=== PATIENT | male | born 1990 | race Caucasian/White ===

== ENCOUNTER 2023-03-23 11:03 | Inpatient (IN) | payer MEDICAID, OTHER ==
[~2023-03-23] VITALS: Ht 175.3 cm; Wt 90.9 kg
[2023-03-23 13:44] LABS: COVID AG,FIA SOURCE NASAL SWAB
[2023-03-23 13:45] LABS: BASOPHILS % (AUTO) 0.7 % (0.0-2.0); EOSINOPHILS % (AUTO) 1.8 % (1.0-6.0); HEMATOCRIT 41.1 % (41-53); HEMOGLOBIN 13.7 g/dL (13.5-17.5); LYMPHOCYTES # (AUTO) 1.8 K/uL (1.0-4.8); MEAN CORPUSCULAR HEMOGLOBIN 31.2 pg (26.0-34.0); MEAN CORPUSCULAR HGB CONC 33.3 G/dL (31.0-37.0); MEAN CORPUSCULAR VOLUME 94 fL (80-100); MONOCYTES % (AUTO) 10.4 % (2.0-9.0); NEUTROPHILS # (AUTO) 6.2 K/uL (1.8-7.7); NEUTROPHILS % (AUTO) 67.1 % (40.0-70.0); PLATELET COUNT (AUTO) 364 K/uL (150-450); RED BLOOD CELL COUNT(AUTO) 4.39 MIL/uL (4.50-5.90); RED CELL DISTRIBUTION WIDTH 13.8 % (11.5-14.5); WHITE BLOOD COUNT (AUTO) 9.2 K/uL (4.5-11.0)
[2023-03-23 13:50] LABS: SARS-COV2 (COVID) ANTIGEN,FIA Negative (Negative)
[2023-03-23 13:57] LABS: ANION GAP 17 mmol/L (8-16); CALCIUM, TOTAL 9.1 mg/dL (8.8-10.5); CARBON DIOXIDE 21 mmol/L (22-29); CHLORIDE 98 mmol/L (98-107); CREATININE 0.83 mg/dL (0.60-1.30); GLOMERULAR FILTR. RATE CALC > 60 mL/min (>60); GLUCOSE,RANDOM 87 mg/dL (70-110); POTASSIUM 3.4 mmol/L (3.5-5.1); SODIUM SERUM 136 mmol/L (136-145); UREA NITROGEN, BLOOD 18 mg/dL (7-18)
[2023-03-23 14:03] LABS: ALANINE AMINOTRANSFERASE 32 U/L (12-78); ALBUMIN 3.9 g/dL (3.4-5.0); ALKALINE PHOSPHATASE 69 U/L (46-116); ASPARTATE AMINOTRANSFERASE 32 U/L (15-37); BILIRUBIN,TOTAL 0.7 mg/dL (0.1-1.0); TOTAL PROTEIN, SERUM 8.1 g/dL (6.4-8.2)
[2023-03-23 14:09] LABS: ALCOHOL, BLOOD (SERUM) < 3 mg/dL (0-10)
[2023-03-23] MEDS ORDERED: LORazepam 2 MG TABLET PO PRN (20:30)
[2023-03-23] MEDS ORDERED: HALOPERIDOL 5 MG TABLET PO PRN (20:30)
[2023-03-24 18:43] VITALS: BP 134/80; PULSE 100; RESP 18; TEMP 97.8
[2023-03-24 20:06] VITALS: BP 107/70; PULSE 112; RESP 18; TEMP 98.7
[2023-03-24] MEDS ORDERED: INFLUENZA VIRUS VACCINE QVS 2023-24 (6MO+)/PF 60 MCG/0.5 ML SYRINGE IM. ONE (23:45)
[2023-03-25] MEDS ORDERED: MAG HYDROX/ALUMINUM HYD/SIMETH ES 30 ML SUSPENSION UDCUP PO PRN (05:15)
[2023-03-25] MEDS ORDERED: PETROLATUM,WHITE 28 GM JELLY TP PRN (05:15)
[2023-03-25] MEDS ORDERED: IBUPROFEN 600 MG TABLET PO PRN (05:15)
[2023-03-25] MEDS ORDERED: CloNIDine HCL 0.1 MG TABLET PO PRN (05:15)
[2023-03-25] MEDS ORDERED: BACITRACIN 28 GM OINTMENT TP PRN (05:15)
[2023-03-25] MEDS ORDERED: ALBUTEROL SULFATE HFA 90 MCG/PUFF 8 GM INHALER IH PRN (05:15)
[2023-03-25] MEDS ORDERED: BENZOCAINE/MENTHOL LOZENGE PO PRN (05:15)
[2023-03-25] MEDS ORDERED: OMEPRAZOLE 20 MG CAPSULE PO PRN (05:15)
[2023-03-25] MEDS ORDERED: DOCUSATE SODIUM 100 MG CAPSULE PO PRN (05:15)
[2023-03-25] MEDS ORDERED: ACETAMINOPHEN 325 MG TABLET PO PRN (05:15)
[2023-03-25] MEDS ORDERED: LOPERAMIDE HCL 2 MG CAPSULE PO PRN (05:15)
[2023-03-25] MEDS ORDERED: MAGNESIUM HYDROXIDE SUSPENSION 30 ML UDCUP PO PRN (05:15)
[2023-03-25] MEDS ORDERED: ONDANSETRON HCL 4 MG TABLET PO PRN (05:15)
[2023-03-25] MEDS: POTASSIUM CHLORIDE 20 MEQ ER TABLET PO ONE (06:41)
[2023-03-25 08:22] VITALS: BP 137/54; PULSE 85; RESP 18; TEMP 98.9
[2023-03-25 21:09] VITALS: BP 102/65; PULSE 108; RESP 18; TEMP 98.6
[2023-03-25] MEDS: ZOLPIDEM TARTRATE 10 MG TABLET PO PRN (22:48)
[2023-03-26 09:26] VITALS: BP 115/73; PULSE 89; RESP 18; TEMP 97.6
[2023-03-26] MEDS: RisperiDONE 1 MG TABLET PO SCH (09:34)
[2023-03-26 22:11] VITALS: BP 110/72; PULSE 94; RESP 18; TEMP 97.8
[2023-03-27 08:32] VITALS: BP 121/70; PULSE 80; RESP 17; TEMP 97.7
[2023-03-27 22:34] VITALS: RESP 18; TEMP 97.5
[2023-03-28 08:30] VITALS: BP 126/73; PULSE 93; RESP 19; TEMP 98
[2023-03-28 20:47] VITALS: BP 127/54; PULSE 93; RESP 18; TEMP 97.4
[2023-03-29 08:05] VITALS: BP 118/83; PULSE 91; RESP 18; TEMP 97.9
[2023-03-29 20:16] VITALS: BP 117/81; PULSE 94; RESP 18; TEMP 98.1
[2023-03-30 08:01] VITALS: BP 108/44; PULSE 90; RESP 18; TEMP 98.2
[2023-03-30 20:30] VITALS: BP 111/61; PULSE 95; RESP 18; TEMP 97.8
[2023-03-31 08:09] VITALS: BP 113/67; PULSE 86; RESP 18; TEMP 98
[2023-03-31] MEDS ORDERED: RISP-31 PO (16:19)
[2023-03-31 20:23] VITALS: BP 110/74; PULSE 88; RESP 18; TEMP 97.8
[2023-04-01 08:10] VITALS: BP 113/65; PULSE 78; RESP 18; TEMP 97.9
== END 2023-04-01 13:30 | disposition home or self-care (01) | DRG 751 ==
LOC: EMS 11:09 → 3EC 03-24 15:58
PROVIDERS: ADMIT Psychiatry & Neurology Psychiatry; ATTEND Psychiatry & Neurology Psychiatry
DX: F29 Unspecified psychosis not due to a substance or known physiological condition (principal); Z91.148 Patient's other noncompliance with medication regimen for other reason; E87.6 Hypokalemia; F20.9 Schizophrenia, unspecified; K59.00 Constipation, unspecified; F32.A Depression, unspecified; Z20.822 Contact with and (suspected) exposure to COVID-19; F12.90 Cannabis use, unspecified, uncomplicated; F19.10 Other psychoactive substance abuse, uncomplicated; F41.9 Anxiety disorder, unspecified; G47.00 Insomnia, unspecified; Z87.891 Personal history of nicotine dependence; Z89.512 Acquired absence of left leg below knee; Z59.00 Homelessness unspecified
CPT/HCPCS: 80053; 84132; 85025; 97161; 99285; G0480